=== PATIENT | male | born 1995 | race Caucasian/White ===

== ENCOUNTER 2017-07-25 07:14 | Emergency (ER) | payer OTHER ==
[~2017-07-25] VITALS: Ht 175.3 cm; Wt 89.1 kg
[2017-07-25 07:19] VITALS: TEMP 97.7
[2017-07-25] MEDS ORDERED: NORCO 325 MG-51 TAB PO (09:10)
[2017-07-25 09:56] VITALS: BP 153/82; PULSE 74
== END 2017-07-25 09:56 | disposition home or self-care (01) ==
LOC: COL.ER 07:14
DX: S53.104A Unspecified dislocation of right ulnohumeral joint, initial encounter (principal); W18.30XA Fall on same level, unspecified, initial encounter; Y93.74 Activity, frisbee; Y92.830 Public park as the place of occurrence of the external cause
CPT/HCPCS: J1170; J2405; J2704